=== PATIENT | female | born 1970 | race Caucasian/White ===

== ENCOUNTER → 2021-11-05 | Outpatient (CLI) | payer OTHER ==
--- NOTE | 2021-11-05 16:29 | XR ---
EXAMINATION TYPE: XR chest 2V DATE OF EXAM: 11/05/2021 2:18 PM COMPARISON: None TECHNIQUE: XR chest 2V Frontal and lateral views of the chest. CLINICAL INDICATION:Female, 51 years old with history of PRE SURGICAL; FINDINGS: Lungs/Pleura: There is no evidence of pleural effusion, focal consolidation, or pneumothorax. Pulmonary vascularity: Unremarkable. Heart/mediastinum: Cardiomediastinal silhouette is unremarkable. Musculoskeletal: No acute osseous pathology. IMPRESSION: No acute cardiopulmonary disease/process.
[2021-11-05 17:03] LABS: INR 0.9 (<1.2); Partial Thromboplastin Time 26.3 sec (22.0-30.0); Prothrombin Time 10.2 sec (9.0-12.0)
[2021-11-05 22:21] LABS: HCT 43.1 % (37.2-46.3); HGB 13.3 g/dL (12.0-15.0); MCH 28.5 pg (27.0-32.0); MCHC 30.9 g/dL (32.0-37.0); MCV 92.3 fL (80.0-97.0); Mean Platelet Volume 10.4 fL (9.5-12.2); NRBC Per 100 WBC 0 /100 WBCS (0.0-0.0); Platelet Count 233 X 10*3/uL (140-440); RBC 4.67 X 10*6/uL (4.10-5.20); RDW 13.4 % (11.5-14.5); WBC 5.18 X 10*3/uL (4.50-10.00)
[2021-11-05 23:02] LABS: African American GFR (CKD) 80.2 (60.0-200.0); Anion Gap 9.6 mmol/L (10.00-18.00); BUN/Creat Ratio 15.58 Ratio (12.00-20.00); Calcium 9.4 mg/dL (8.7-10.3); Carbon Dioxide 25.5 mmol/L (20.0-27.5); Non-African American GFR(CKD) 69.2 (60.0-200.0); Potassium 4.1 mmol/L (3.5-5.5)
[2021-11-06 04:06] LABS: Appearance,Urine Clear (Clear); Bilirubin,Urine Negative (Negative); Blood,Urine Negative (Negative); Color,Urine Yellow (Yellow); Ketones,Urine Negative (Negative); Nitrite,Urine Negative (Negative); PH, Urine 5.5 (5.0-8.0); Specific Gravity,Urine 1.008 (1.001-1.030); Urobilinogen,Urine 0.2 (0.2,1.0)
== END | disposition home or self-care (01) ==
LOC: LABPAT 13:52
PROVIDERS: ATTEND Orthopaedic Surgery Orthopaedic Surgery of the Spine
DX: Z01.812 Encounter for preprocedural laboratory examination (principal); Z01.818 Encounter for other preprocedural examination; M47.896 Other spondylosis, lumbar region; M48.061 Spinal stenosis, lumbar region without neurogenic claudication
CPT/HCPCS: 71046; 80048; 81003; 85027; 85610; 85730; 87070; 93005

== ENCOUNTER 2021-11-15 11:08 | Observation (INO) | payer BC, OTHER ==
[~2021-11-15 11:08] MED LIST: DEXAMETHASONE SOD PHOSPHATE 4 MG/ML 1 ML VIAL IV ONE; LIDOCAINE 1% (10MG/ML) FOR IV START INTRADERMA PRN; MIDAZOLAM 2 MG/2 ML VIAL IV PRN; ONDANSETRON 4 MG/2 ML VIAL IVP ONE; ceFAZolin 1,000 MG in SODIUM CHLORIDE 0.9% IRRIGATIO 1,000 ML IRRIGATION PRN
[2021-11-15] MEDS: LACTATED RINGERS 1,000 ML IV SCH (12:12)
[2021-11-15 12:21] LABS: Glucose,Whole Blood 88 mg/dL (70-110)
[2021-11-15] MEDS ORDERED: SCOPOLAMINE 1 MG/72 HR PATCH TRANSDERM ONE (12:22)
[2021-11-15] MEDS ORDERED: PROPOFOL 10 MG/ML 20 ML VIAL IV ONE (13:08)
[2021-11-15] MEDS ORDERED: MIDAZOLAM 2 MG/2 ML VIAL ONE (13:08)
[2021-11-15] MEDS ORDERED: KETAMINE 10 MG/ML 20 ML VIAL ONE (13:08)
[2021-11-15] MEDS ORDERED: fentaNYL (PF) 50 MCG/ML 2 ML AMP ONE (13:08)
[2021-11-15] MEDS ORDERED: SUCCINYLCHOLINE CHLORIDE 200 MG/10 ML VIAL IV ONE (13:08)
[2021-11-15] MEDS ORDERED: LIDOCAINE 2% INJ 20 MG/ML (2 ML VIAL) ONE (13:08)
[2021-11-15] MEDS ORDERED: LIDOCAINE 2%-EPI 1:100,000 20 ML VIAL SQ ONE (13:52)
[2021-11-15] MEDS ORDERED: GELATIN SPONGE,ABSORB (LARGE) 1 EACH SPONGE TOPICAL ONE (13:52)
[2021-11-15] MEDS ORDERED: THROMBIN (BOVINE) 5,000 UNIT VIAL TOPICAL ONE (13:52)
[2021-11-15] MEDS ORDERED: BUPIVACAINE (PF) 0.25% 30 ML VIAL SQ ONE (13:52)
[2021-11-15] MEDS ORDERED: LACTATED RINGERS 1,000 ML IV ONE (15:32)
[2021-11-15] MEDS ORDERED: HYDROmorphone 0.5 MG/0.5 ML SYRINGE IVP PRN (15:51)
[2021-11-15] MEDS ORDERED: BENZOCAINE/MENTHOL LOZENG 1 EACH LOZENGE MUCOUS MEM PRN (15:51)
[2021-11-15] MEDS ORDERED: MAGNESIUM HYDROXIDE 2,400 MG/10 ML CUP PO PRN (15:52)
[2021-11-15] MEDS ORDERED: ONDANSETRON 4 MG/2 ML VIAL IVP PRN (15:52)
[2021-11-15] MEDS ORDERED: HYDROcodone/APAP 7.5-325MG 1 EACH TAB PO PRN (15:55)
[2021-11-15] MEDS ORDERED: CYCLOBENZAPRINE 10 MG TAB PO PRN (15:55)
--- NOTE | 2021-11-15 15:59 | P.OP ---
Date of Procedure: 11/15/21 Preoperative Diagnosis: Dynamic spondylolisthesis L4 5, spinal stenosis L4 5, lower extremity radiculopathy, facet arthrosis, degenerative disc disease Postoperative Diagnosis: Same Anesthesia: GETA Pathology: none sent Condition: stable Disposition: PACU Description of Procedure: DESCRIPTION OF PROCEDURE(S): BRIEF OPERATIVE NOTE Preoperative Diagnosis: Dynamic spondylolisthesis L4 5, spinal stenosis L4 5, lower extremity radiculopathy, facet arthrosis, degenerative disc disease Postoperative Diagnosis: Same Procedure: Laminectomy and decompression L4 [address] navigation aided Minimally invasive Posterior lateral decompression and facet fusion L4 5 Minimally invasive Transforaminal lumbar interbody fusion for a 360 fusion L4 5 Discectomy for decompression L4 5 Placement of interbody graft L4 5 Use of computer navigation for fusion Local autogenous bone grafting Aspiration of bone marrow from the vertebral body pedicle at L4 on the right Use of bone graft extenders Surgeon: Dr. [employer] Consultant: Jean Claude CAMPBELL who is present throughout the entire the case persistence during positioning, dissection, exposure, visualization, and all crucial elements of the case as well as closure. Anesthesia: General anesthesia per Dr. Mendoza Estimated blood loss: Approximately 150 mL Complications: None apparent Components implanted: K2M minimally invasive [place] pedicle screw system withscrews measuring 6.5 mm in diameter to rods one [place] interbody cage with 10 mL of osteo amp bio4 bone graft substitute and 30 mL of the BX bone fibers to supplement the local autogenous bone graft and bone marrow aspirate Disposition: To recovery room in good stable condition. OPERATIVE INDICATIONS The patient has had severe issues at their lower extremity in her lower back over the past several years with significant worsening over the past several months. Over the past few months the patient had pain at their back and their lower extremities. The patient is having severe radicular symptoms at their lower extremity with weakness. The patient is having significant pain in their back. They are unable to obtain any comfort. We did aggressive conservative treatment with medications therapy and interventional pain management however thery were not having any relief. The patient also showed evidence of a listhesis with some dynamic instability at L4 5 which seemed to be the primary source of her symptoms. The patient has been through conservative treatment. We discussed various treatment options including surgery, and the patient wishes to proceed with surgery We discussed the risk, patient's alternatives and benefits of surgery including but not limited to, risk of bleeding risk of infection, risk of need for further surgery, risk of decreased, loss of motion, muscle function, malunion nonunion, hardware failure, nerve damage, paralysis, heart attack, blindness and . They understood issues with the current pandemic and the possibility of exposure. OPERATIVE SUMMARY After discussing all the risks, patient alternatives and benefits at length, the patient elected to proceed with surgical intervention, signed informed consent, and presented for their procedure. The patient was seen and examined in the preoperative holding area and the surgical site was marked. The patient was given antibiotics and brought to the operating room. The patient was sedated and intubated by anesthesia in standard fashion. The patient was positioned on to the operating room table in a prone position on the appropriate frame which was well-padded and well molded. We were careful to pad any bony prominences and pressure points. We were careful to maintain the patient's cervical spine and good neutral alignment and position throughout. The patient was prepped and draped in a normal standard fashion. An appropriate timeout and keystone protocol performed. We were able to proceed with the surgery. The local wound area was infiltrated with local anesthetic. Over the right iliac crest I was able to make small stab incisions and establish a guidepin screw fixation to the iliac crest 2. I was able place the computer referencing device over the guidepins to establish an appropriate reference point for the [employer] CT navigation. We then were able to place patient in an appropriate drape and do a navigation spin for visualization and 3-D reconstruction of the lumbar spine. I was able utilize C-arm guidance and navigation to establish appropriate position over the pedicles bilaterally at the appropriate levels . With the appropriate levels confirmed at L4 5 I was able to make small incisions over the appropriate pedicle sites bilaterally. Utilizing the computer navigation device I was able to establish bony landmarks at the right iliac crest for a bony reference point for the navigation device. I was able to establish a Jamshidi needle over the lateral aspect of the pedicle and advanced the trocar into the pedicle being careful not to breech superiorly inferiorly medially or laterally using computer navigation device. Position was confirmed regularly with AP and lateral images on C-arm and with the computer navigation device at the appropriate levels bilaterally. I was able to establish the trocar into the pedicle appropriately into the posterior aspect of the vertebral body bilaterally at the appropriate levels at L4 and L5. This was done at each of the pedicle positions and each of the vertebrae. At the superior vertebrae I was able to take approximately 25 mL of bone aspiration for use later in the case to supplement the allograft and autograft bone. I was able place the guidewire into the trocar and into the vertebral body appropriately under C-arm guidance. Dissection was taken down over the wire to the appropriate starting position for the screw placed. The appropriate length screw was chosen, threaded over the guidewire and screwed appropriately into the pedicle and vertebral body under C-arm guidance in excellent alignment and position with good bony purchase. This is done at each of the screw sites at the appropriate levels.. With the screws intact I extended the incision to connect the screw hole sites on the most symptomatic side on the right. I dissected down to establish access over the pars and lamina to the base of the spinous process. I was able to expose the facet joint. The capsule the facet was taken down and showed some facet arthrosis at the joint. I was able to use a combination of curettes and [place] rongeurs and a high-speed drill to take down the facet joint and do a facetectomy. I was able get excellent foraminal decompression and central decompression with undermining across midline to perform a laminectomy centrally and contralaterally. I was able get good central decompression. The ligamentum flavum was taken down to further decompress centrally and at bilateral neural foramen. I was able to expose the disc space and visualize the traversing nerve root. Note was made of some disc protrusion and disc herniation that was abutting the traversing nerve root at the level causing further compression of the nerve root. I was able to establish a annulotomy at the appropriate level protecting soft tissue and neural structures. Note was made of some disc desiccation at the disc. I performed a complete discectomy with accommodation of curettes and rasps and scrapers. I was able get good endplate preparation at the disc space. I sized for the appropriate size interbody spacer protecting the soft tissue and neural structures. The wound was copiously irrigated and suctioned dry. There is no evidence of any dural tear or leak. I was able to pack the disc space with local autogenous bone graft as well as a small amount of bone graft which was also placed into the interbody cage itself. Protecting the soft tissue structures and neural structures I was able place the interbody cage in good alignment and good position with good fit and fill at the interbody space. Position was confirmed with C-arm guidance. Good hemostasis maintained. There is no evidence of any dural tear or leak. The wound was irrigated and suctioned dry. With the hardware intact, intraoperative C-arm imaging was again taken which showed good alignment and position of the hardware at the appropriate levels. We were then able to measure, contour and place the rods and appropriate hardware bilaterally. I was able to place capcrews, tighten them down, and torque them with the torque screwdriver appropriately. With this intact I was able to place the local autogenous bone graft with additional bone graft enhancer as necessary into the posterior lateral gutters over the decorticated transverse processes and facet joints on the contralateral side. The remainder of the bone graft was placed over the facet joint on the contralateral side after taking down the facet joint capsule. With the bone graft intact, a stable construct, and good decompression at the appropriate levels, we were able to proceed with closure. Good hemostasis was maintained. There is no evidence of dural tear or leak. The fascia was closed for a watertight closure. he subcuticular tissue was closed with absorbable suture. The wound was cleaned and dried and dressed with the appropriate dressing. The drapes were broken down. The patient was gently rolled back onto their hospital bed being careful to maintain their cervical spine and good neutral alignment and position. They were woken up by anesthesia, extubated, and brought to the recovery room in good stable condition. The patient will be admitted to the hospital for appropriate postoperative care, medical management and monitoring. We will continue to follow them closely about the postoperative course.
[2021-11-15] MEDS: HYDROmorphone 0.5 MG/0.5 ML SYRINGE IVP PRN ×3 (16:12→16:39)
[2021-11-15] MEDS: MEPERIDINE 50 MG/ML SYRINGE IVP ONE ×2 (16:18→16:28)
--- NOTE | 2021-11-15 18:01 | FL ---
Intraoperative/procedural fluoroscopic services were provided. Total fluoroscopy time is 17 seconds w ith a total of 5 submitted images to PACS. Please see the operative/procedural note for further detai ls.
[2021-11-15] MEDS: HYDROmorphone 1 MG/ML 1 ML SYRINGE IVP PRN ×2 (19:21→22:51)
[2021-11-15] MEDS: SODIUM CHLORIDE 0.9% 1,000 ML IV SCH (20:03)
[2021-11-15] MEDS: HYDROcodone/APAP 5-325MG 1 EACH TAB PO PRN (21:52)
[2021-11-15] MEDS: THYROID, PORK 30 MG TAB PO SCH (21:52)
[2021-11-16] MEDS: LACTATED RINGERS 1,000 ML IV SCH (00:23)
[2021-11-16] MEDS: SODIUM CHLORIDE 0.9% 1,000 ML IV SCH ×2 (05:13→21:02)
[2021-11-16] MEDS: SENNOSIDES-DOCUSATE SODIUM 1 EACH TAB PO SCH (08:06)
[2021-11-16] MEDS: CYCLOBENZAPRINE 10 MG TAB PO PRN ×3 (08:07→23:01)
[2021-11-16] MEDS: HYDROmorphone 1 MG/ML 1 ML SYRINGE IVP PRN ×4 (08:08→20:05)
--- NOTE | 2021-11-16 08:52 | P.PN ---
Progress Note - Text Progress Note Date: 11/16/21 Orthopedic Spine History of present illness: Patient is a pleasant 51-year-old female who is seen and examined at the bedside following posterior lateral decompression and fusion performed yesterday. She has been having significant pain in her surgical incision size of the lumbar spine. She is currently resting in bed. She is not currently experiencing any significant pain with her bilateral lower extremities postoperatively. Her [place] catheter remains intact. She has not been able to get out of bed independently. She have some nausea after her pain medication yesterday with vomiting. She denies fever or chills. She does feel she will need a walker to aid in ambulation. She continues to receive IV Dilaudid and oral [place] for pain control. Physical Exam Lumbar Fusion: Status post surgical day number 1 Patient is awake, alert, and oriented 3 Vital signs stable Good chest excursion with deep inspiration and expiration [place] catheter intact Dorsiflexion, plantarflexion, and extensor hallucis longus positive sustained bilaterally No signs or symptoms of DVT; no calf pain; pneumatic cuffs intact bilateral lower extremities Optifoam dressings are clean, dry, and intact over the lumbar spine and right iliac crest; no erythema, purulence, or signs of infection Neurovascularly intact bilaterally lower extremities Assessment: Status post L4-5 minimally invasive posterior lateral decompression and fusion with transforaminal lumbar interbody fusion Low back pain L4-5 dynamic spondylolisthesis L4-5 spinal stenosis Lumbar facet arthrosis Lumbar degenerative disc disease Lower extremity radiculopathy Hypothyroidism Plan: 1. Ambulate as tolerated; work with Physical Therapy to increase mobilization; she may utilize a walker to aid in ambulation as needed. Prescription is written, signed, and provided to case management to obtain a 2 wheeled walker to aid in ambulation which the patient may use an outpatient setting as needed 2. Continue pain control with IV and oral medications including IV Dilaudid, oral [place], and oral cyclobenzaprine 3. Dressings to remain intact with Optifoam; patient may shower with dressings intact 4. Medical management can continue to manage patient for patient's other medical diagnoses including hypothyroidism 5. We will continue to follow the patient closely; depending on the patient's progress, we may plan for discharge home over the next 1-2 days. Currently, she is moving significantly slowly and may require hospitalization for another couple days prior to discharge home. 6. Patient can follow-up with Jean Claude Haq PA-C or Dr. Arsen Gaffney at [facility] in 2-3 weeks following discharge
[2021-11-16] MEDS ORDERED: [UNRECOGNIZED DRUG - OTHER] PO SCH (09:00)
[2021-11-16] MEDS ORDERED: ASCORBIC ACID PO SCH (09:00)
[2021-11-16] MEDS ORDERED: COLLAGEN HYDR PO SCH (09:00)
[2021-11-16] MEDS ORDERED: CAPSU PO SCH (09:00)
[2021-11-16] MEDS ORDERED: NON FORMULARY DRUG (Glucos Sul 2kcl/Msm/Chond/C/Mn [Glucosamine Chondroitin Cap] 1 EACH Ca PO SCH (09:00)
[2021-11-16 10:41] LABS: Basophils # (A) 0.03 X 10*3/uL (0.00-0.10); Basophils % (A) 0.2 %; Eosinophils # (A) 0 X 10*3/uL (0.04-0.35); Eosinophils % (A) 0 %; HCT 37.6 % (37.2-46.3); HGB 12.3 g/dL (12.0-15.0); Immature Grans, Automated 0.5 %; Lymphocytes # (A) 1.18 X 10*3/uL (0.90-5.00); Lymphocytes % (A) 9.7 %; MCH 29.9 pg (27.0-32.0); MCHC 32.7 g/dL (32.0-37.0); MCV 91.3 fL (80.0-97.0); Mean Platelet Volume 10.5 fL (9.5-12.2); Monocytes % (A) 8.2 %; NRBC Per 100 WBC 0 /100 WBCS (0.0-0.0); Neutrophils # (A) 9.89 X 10*3/uL (1.80-7.70); Neutrophils % (A) 81.4 %; Platelet Count 213 X 10*3/uL (140-440); RBC 4.12 X 10*6/uL (4.10-5.20); RDW 13.2 % (11.5-14.5); WBC 12.16 X 10*3/uL (4.50-10.00)
[2021-11-16 11:43] LABS: Anion Gap 10.6 mmol/L (10.00-18.00); BUN/Creat Ratio 11.44 Ratio (12.00-20.00); Blood Urea Nitrogen 10.3 mg/dL (9.0-27.0); Calcium 8.8 mg/dL (8.7-10.3); Carbon Dioxide 23.4 mmol/L (20.0-27.5); Non-African American GFR(CKD) 75.1 (60.0-200.0); Potassium 4.8 mmol/L (3.5-5.5)
--- NOTE | 2021-11-16 12:21 | P.CONS ---
History of Present Illness - Reason for Consult Leukocytosis - History of Present Illness Patient is admitted for the laminectomy and decompression surgery of L4-5. Patient is still having significant pain. Patient does have leukocytosis without any evidence of infection, does have any cough fever, chills, dysuria. Patient didn't pass gas yet. REVIEW OF SYSTEMS: CONSTITUTIONAL: No fever, no malaise, no fatigue. HEENT: No recent visual problems or hearing problems. Denied any sore throat. CARDIOVASCULAR: No chest pain, orthopnea, PND, no palpitations, no syncope. PULMONARY: No shortness of breath, no cough, no hemoptysis. GASTROINTESTINAL: No diarrhea, no nausea, no vomiting, no abdominal pain. NEUROLOGICAL: No headaches, no weakness, no numbness. HEMATOLOGICAL: Denies any bleeding or petechiae. GENITOURINARY: Denies any burning micturition, frequency, or urgency. MUSCULOSKELETAL/RHEUMATOLOGICAL: Severe back pain postoperatively ENDOCRINE: Denies any polyuria or polydipsia. The rest of the 14-point review of systems is negative. PHYSICAL EXAMINATION: GENERAL: The patient is alert and oriented x3, not in any acute distress. Well developed, well nourished. HEENT: Pupils are round and equally reacting to light. EOMI. No scleral icterus. No conjunctival pallor. Normocephalic, atraumatic. No pharyngeal erythema. No thyromegaly. CARDIOVASCULAR: S1 and S2 present. No murmurs, rubs, or gallops. PULMONARY: Chest is clear to auscultation, no wheezing or crackles. ABDOMEN: Soft, nontender, nondistended, normoactive bowel sounds. No palpable organomegaly. MUSCULOSKELETAL: Deferred to orthopedic surgery EXTREMITIES: No cyanosis, clubbing, or pedal edema. NEUROLOGICAL: Gross neurological examination did not reveal any focal deficits. SKIN: No rashes. Assessment and plan -Leukocytosis without any evidence of infection over the depression is necessary at this time we will continue to monitor. -Hypotelorism continue with thyroid hormone supplementation -Chronic back pain, patient is status post lumbar laminectomy DVT prophylaxis: As per primary service Past Medical History Past Medical History: Musculoskeletal Disorder, Thyroid Disorder Additional Past Medical History / Comment(s): chronic constipation, back injury @work while lifting, occasional vertigo History of Any Multi-Drug Resistant Organisms: None Reported Past Surgical History: Cholecystectomy, Tubal Ligation Past Anesthesia/Blood Transfusion Reactions: No Reported Reaction Smoking Status: Former smoker - Past Family History Mother Family Medical History: No Reported History Medications and Allergies Home Medications Medication Instructions Recorded Confirmed Type Ascorbic Acid/Collagen Hydr 1 each PO DAILY 11/08/21 11/15/21 History [Collagen Plus Vit C Capsule] Cyclobenzaprine [Flexeril] 10 mg PO HS PRN 11/08/21 11/15/21 History Glucos Sul 2Kcl/MSM/Chond/C/Mn 1 each PO DAILY 11/08/21 11/15/21 History [Glucosamine Chondroitin Cap] HYDROcodone/APAP 7.5-325MG [[place] 1 tab PO BID PRN 11/08/21 11/15/21 History 7.5-325] Herbal Supplement 1 tab PO DAILY PRN 11/08/21 11/15/21 History Thyroid,Pork [[employer] Thyroid 120] 120 mg PO HS 11/08/21 11/15/21 History Turmeric Root Extract [Turmeric 500 mg PO DAILY 11/08/21 11/15/21 History Curcumin] Allergies Allergy/AdvReac Type Severity Reaction Status Date / Time No Known Allergies Allergy Verified 11/15/21 11:40 Physical Exam Vitals: Vital Signs Temp Pulse Resp BP Pulse Ox 11/16/21 04:09 98.3 F 74 16 126/68 98 11/15/21 21:52 98.3 F 86 16 110/67 96 11/15/21 20:00 97.8 F 99 16 102/69 94 L 11/15/21 19:30 16 11/15/21 18:25 97.9 F 99 16 108/71 97 11/15/21 17:45 83 16 125/72 100 11/15/21 17:31 86 16 115/69 100 11/15/21 17:15 86 16 114/68 100 11/15/21 16:45 84 16 122/69 100 11/15/21 16:30 97 16 137/88 100 11/15/21 16:15 89 16 128/85 100 11/15/21 16:01 96.9 F L 84 16 145/82 100 Intake and Output 11/15/21 11/16/21 11/16/21 22:59 06:59 14:59 Intake Total 580 1360 Output Total 250 900 Balance 330 460 Intake: IV 100 Intake, IV Titration 1000 Amount Sodium Chloride 0.9% 1, 900 000 ml @ 75 mls/hr IV . [id number] [facility] Rx#:[id number] ceFAZolin 2 gm In Sodium 100 Chloride 0.9% 50 ml @ 100 mls/hr IVPB Q8H [facility] Rx#: [id number] Oral 480 360 Output: Urine 100 600 Oral Regurgitation 300 Estimated Blood Loss 150 Other: Voiding Method Indwelling Catheter Indwelling Catheter Results CBC & Chem 7: 11/16/21 07:01 11/16/21 07:01 Labs: Abnormal Lab Results - Last 24 Hours (Table) 11/16/21 11/16/21 Range/Units 07:01 07:01 WBC 12.16 H (4.50-10.00) X 10*3/uL Immature Gran # 0.06 H (0.00-0.04) X 10*3/uL Neutrophils # 9.89 H (1.80-7.70) X 10*3/uL Eosinophils # 0 L (0.04-0.35) X 10*3/uL BUN/Creatinine Ratio 11.44 L (12.00-20.00) Ratio
[2021-11-16] MEDS: HYDROcodone/APAP 5-325MG 1 EACH TAB PO PRN ×3 (14:23→23:00)
[2021-11-16] MEDS: THYROID, PORK 30 MG TAB PO SCH (21:01)
[2021-11-17] MEDS: HYDROcodone/APAP 5-325MG 1 EACH TAB PO PRN ×3 (03:30→12:35)
[2021-11-17] MEDS: LACTATED RINGERS 1,000 ML IV SCH (05:25)
[2021-11-17 06:04] VITALS: RESP 18
[2021-11-17] MEDS: CYCLOBENZAPRINE 10 MG TAB PO PRN (08:16)
[2021-11-17] MEDS: SENNOSIDES-DOCUSATE SODIUM 1 EACH TAB PO SCH (08:17)
[2021-11-17] MEDS: SODIUM CHLORIDE 0.9% 1,000 ML IV SCH (08:17)
--- NOTE | 2021-11-17 09:44 | P.DS ---
Providers Date of admission: 11/16/21 11:17 Expected date of discharge: 11/17/21 Attending physician: Jeferson Gaffney Consults: 11/15/21 15:52 Consult Physician Routine Consulting Provider: Yobani Conway Consult Reason/Comments: Medical management Do you want consulting provider notified?: Yes Primary care physician: Morgan Marcum - Discharge Diagnosis(es) (1) Spondylolisthesis at L4-L5 level Current Visit: Yes Status: Acute (2) Lumbar stenosis Current Visit: Yes Status: Acute (3) Lumbar back pain with radiculopathy affecting lower extremity Current Visit: Yes Status: Acute (4) Lumbar facet arthropathy Current Visit: Yes Status: Acute (5) Status post lumbar spinal fusion Current Visit: Yes Status: Acute (6) Hypothyroidism Current Visit: Yes Status: Acute (7) Obesity (BMI 30-39.9) Current Visit: Yes Status: Acute Hospital Course: This is a pleasant 51 [id number] who presented with L4-5 dynamic spondylolisthesis, spinal stenosis, lumbar facet arthrosis, lumbar degenerative disc disease, and low back pain with lower extremity radiculopathy who failed outpatient conservative therapy. She admitted for an L4-5 minimally invasive posterior lateral decompression and fusion with transforaminal lumbar interbody fusion. She was having some difficulty with pain control the first night postoperatively but has had significant improvement since that time. The patient tolerated the procedure well and did well postoperatively. She has been able to ambulate to the restroom all times independently with the assistance of a walker. She does have some difficulty getting out of bed but she is able to do so. Her IV pain medication has been discontinued. She feels her pain is well-controlled and she is ready for discharge today. Condition on day of discharge stable. Patient will be discharged home. Patient was cleared preoperatively for surgery by Dr. Marcum. Patient currently denies any nausea, vomiting, fever, or chills. Patient is eating and voiding freely without difficulty. Patient may shower Optifoam dressing intact. Patient may remove Optifoam dressing in 3 days and shower without a dressing at that time. Patient should refrain from driving until at least after their first follow-up appointment in the office. Patient should avoid excessive bending, lifting, and twisting; no lifting greater than 10 pounds. MAPS has been reviewed today, 11/17/2021, with an Overall Overdose Risk Score of 300. An "Opiod Start Talking" Form has been signed and placed in the patient's chart. A prescription has been written for hydrocodone 5 mg/325 mg 1 every 4 hours as needed for pain, dispensed #42. She is given prescription for cyclobenzaprine 10 mg 1 tab 3 times a day as needed for muscle spasm. She is also given a prescription for Senokot-S 1 tab twice a day as needed for constipation, dispensed #60. She should avoid anti-inflammatory medications over the next 6 weeks postoperatively. She may utilize a walker to aid in ambulation as needed. Patient's other medical diagnoses include hypothyroidism Physical Exam on day of discharge: Status post surgical day number 2 Patient is awake, alert, and oriented 3 Vital signs stable Good chest excursion with deep inspiration and expiration Abdomen is soft nontender [place] catheter has been discontinued Patient is currently standing at the bedside and is able to ambulate with a walker Dorsiflexion, plantarflexion, and extensor hallucis longus positive sustained bilaterally Good range of motion of the lower extremities Pneumatic cuffs not currently intact bilateral lower extremities Optifoam dressings are clean, dry, and intact over the lumbar spine and right iliac crest; no erythema, purulence, or signs of infection Neurovascularly intact bilaterally lower extremities the patient was seen and examined today at bedside. She is really making good progress and has turned the corner in the past day. Her pain is well-controlled she is tolerating her pain well with some oral medications and her mobilization is improving. She is had limited flatus and I would like to see if she can have some benefit with Dulcolax orally.I think she'll be okay for discharge home today with close follow-up. Procedures: L4-5 minimally invasive posterior lateral decompression and fusion with transforaminal lumbar interbody fusion Patient Condition at Discharge: Good Plan - Discharge Summary Discharge Rx Participant: Yes New Discharge Prescriptions: New Sennosides-Docusate Sodium [Senokot-S] 1 tab PO BID PRN #60 tablet PRN Reason: Constipation Cyclobenzaprine [Flexeril] 10 mg PO TID PRN #60 tab PRN Reason: Muscle Spasm HYDROcodone/APAP 5-325MG [Mills 5] 1 each PO Q4HR PRN #42 tab PRN Reason: Pain No Action HYDROcodone/APAP 7.5-325MG [Mills 7.5-325] 1 tab PO BID PRN PRN Reason: Pain Turmeric Root Extract [Turmeric Curcumin] 500 mg PO DAILY Glucos Sul 2Kcl/MSM/Chond/C/Mn [Glucosamine Chondroitin Cap] 1 each PO DAILY Ascorbic Acid/Collagen Hydr [Collagen Plus Vit C Capsule] 1 each PO DAILY Cyclobenzaprine [Flexeril] 10 mg PO HS PRN PRN Reason: Muscle Spasm Thyroid,Pork [Production Support Developer Thyroid 120] 120 mg PO HS Herbal Supplement 1 tab PO DAILY PRN PRN Reason: Constipation Discharge Medication List Ascorbic Acid/Collagen Hydr [Collagen Plus Vit C Capsule] 1 each PO DAILY 11/08/21 [History] Cyclobenzaprine [Flexeril] 10 mg PO HS PRN 11/08/21 [History] Glucos Sul 2Kcl/MSM/Chond/C/Mn [Glucosamine Chondroitin Cap] 1 each PO DAILY 11/08/21 [History] HYDROcodone/APAP 7.5-325MG [Mills 7.5-325] 1 tab PO BID PRN 11/08/21 [History] Herbal Supplement 1 tab PO DAILY PRN 11/08/21 [History] Thyroid,Pork [Production Support Developer Thyroid 120] 120 mg PO HS 11/08/21 [History] Turmeric Root Extract [Turmeric Curcumin] 500 mg PO DAILY 11/08/21 [History] Cyclobenzaprine [Flexeril] 10 mg PO TID PRN #60 tab 11/17/21 [Rx] HYDROcodone/APAP 5-325MG [Mills 5] 1 each PO Q4HR PRN #42 tab 11/17/21 [Rx] Sennosides-Docusate Sodium [Senokot-S] 1 tab PO BID PRN #60 tablet 11/17/21 [Rx] Follow up Appointment(s)/Referral(s): Jean Claude Haq PAC [PHYSICIAN MATERIALS AND CORROSION ENGINEER] - 12/10/21 1:30 pm (Patient may follow-up with Jean Claude Haq PA-C or Dr. Arsen Gaffney at [facility] in 2-3 weeks following discharge. ) Activity/Diet/Wound Care/Special Instructions: 1. Patient may shower with Optifoam dressing intact. 2. Patient may remove Optifoam dressing in 3 days and shower without a dressing at that time. 3. Patient should refrain from driving until at least after their first follow- up appointment in the office. 4. Patient should avoid excessive bending, twisting, lifting; avoid overhead lifting; no lifting greater than 10 pounds 5. Take medications as prescribed 6. Patient should avoid anti-inflammatory medications over the next 6 weeks postoperatively 7. Do not soak in tub 8. Patient may utilize a walker to aid in ambulation as needed Discharge Disposition: HOME SELF-CARE
[2021-11-17] MEDS ORDERED: bisacodyL 5 MG TABLET.DR PO STA (10:02)
[2021-11-17 11:37] VITALS: BP 117/78; TEMP 99.2
[2021-11-17 11:48] VITALS: PULSE 84
--- NOTE | 2021-11-17 14:20 | P.PN ---
Subjective Progress Note Date: 11/17/21 - Reason for Consult Leukocytosis - History of Present Illness Patient is admitted for the laminectomy and decompression surgery of L4-5. Patient is still having significant pain. Patient does have leukocytosis without any evidence of infection, does have any cough fever, chills, dysuria. Patient didn't pass gas yet. 11/17/2021 Patient is seen and evaluated and follow-up this morning and is status post laminectomy with decompression surgical intervention of the L4-5 and being closely monitored. Patient reports the passing minimal gas and did not have a bowel movement yet. Patient is being given stool softeners and has been evaluated by orthopedics recommending discharge. Patient follows with Shelbi Mirza in the outpatient setting and recommend the patient to follow-up with repeat labs to monitor CBC is WBC was mildly elevated at 12.16 which is most likely reactive. Patient is afebrile denies chest pain or shortness of breath. Patient is tolerating diet and has briefly episodes of nausea and feels is related to the pain pills. Encouraged to increase activity as tolerated with restrictions in mind per orthopedics and patient to follow-up with them in the outpatient setting on discharge. Patient with incentive spirometer at the bedside and encourage the patient to continue using at least 10 times every hour while awake. Review of systems: Constitutional: No reports of fatigue, fever, or chills Cardiovascular: No reports of chest pain or palpitations Respiratory: No reports of shortness of breath or cough GI: reports of occasional nausea last night after pain pills, no reports of vomiting, reports passing minimal gas with no bowel movement as of yet : No reports of dysuria or retention Neurovascular: reports of generalized weakness All medications have been reviewed PHYSICAL EXAMINATION: GENERAL: The patient is alert and oriented x3, not in any acute distress. Well developed, well nourished. HEENT: Pupils are round and equally reacting to light. EOMI. No scleral icterus. No conjunctival pallor. Normocephalic, atraumatic. No pharyngeal erythema. No thyromegaly. CARDIOVASCULAR: S1 and S2 present. No murmurs, rubs, or gallops. PULMONARY: Chest is clear to auscultation, no wheezing or crackles. ABDOMEN: Soft, nontender, nondistended, normoactive bowel sounds. No palpable organomegaly. MUSCULOSKELETAL: Deferred to orthopedic surgery EXTREMITIES: No cyanosis, clubbing, or pedal edema. NEUROLOGICAL: Gross neurological examination did not reveal any focal deficits. SKIN: No rashes. Assessment: -Leukocytosis without any evidence of infection -Hypothyroidism continue with thyroid hormone supplementation -Chronic back pain, patient is status post lumbar laminectomy with decompression of the L4-5 -DVT prophylaxis: As per primary service -Full code Plan: Recommend continue with current medications and management per orthopedic services. WBC mildly elevated yesterday at 12 most likely reactive and provided a prescription for follow-up labs in the outpatient setting. Encourage the patient to follow-up with her primary care provider and she reports she sees Shelbi Mirza outpatient Encouraged increased activity as tolerated Encouraged incentive spirometer at least 10 times every hour while awake Recommend continue current diet and use Zofran as needed for nausea Patient reports she is being discharged today. Encouraged the patient to follow-up with orthopedics as instructed and scheduled. Thank you for this consultation. We will continue to follow during hospitalization. The impression and plan of care has been dictated by Ivonne Ayoub, Nurse Practitioner as directed. Dr. Malissa MD I have performed a history and examination and MDM of this patient, discussed the same with the dictator, and agree with the dictator's assessment and plan as written ,documented as a scribe. Based on total visit time, I have performed more than 50% of the visit. Objective - Vital Signs Vital signs: Vital Signs Temp 98.2 F 11/17/21 05:12 Pulse 84 11/17/21 05:12 Resp 18 11/17/21 05:12 BP 116/73 11/17/21 05:12 Pulse Ox 99 11/17/21 05:12 FiO2 Intake & Output 11/16/21 11/17/21 11/17/21 18:59 06:59 18:59 Intake Total 675 1140 Output Total 1000 850 Balance -325 290 Intake: Intake, IV Titration 675 300 Amount Sodium Chloride 0.9% 1, 675 300 000 ml @ 75 mls/hr IV . [id number] [facility] Rx#:[id number] Oral 840 Output: Urine 1000 850 Uretheral ([place]) 850 Other: Voiding Method Indwelling Catheter Indwelling Catheter # Voids 2 1 - Labs CBC & Chem 7: 11/16/21 07:01 11/16/21 07:01 Labs: Abnormal Lab Results - Last 24 Hours (Table) 11/16/21 11/16/21 Range/Units 07:01 07:01 WBC 12.16 H (4.50-10.00) X 10*3/uL Immature Gran # 0.06 H (0.00-0.04) X 10*3/uL Neutrophils # 9.89 H (1.80-7.70) X 10*3/uL Eosinophils # 0 L (0.04-0.35) X 10*3/uL BUN/Creatinine Ratio 11.44 L (12.00-20.00) Ratio
== END 2021-11-17 13:00 | disposition home or self-care (01) ==
LOC: OR 11:08 → 5NMEDONC 15:43 → OR 11-16 11:17
PROVIDERS: ADMIT Orthopaedic Surgery Orthopaedic Surgery of the Spine; ATTEND Orthopaedic Surgery Orthopaedic Surgery of the Spine
DX: M43.16 Spondylolisthesis, lumbar region (principal); M48.061 Spinal stenosis, lumbar region without neurogenic claudication; M51.16 Intervertebral disc disorders with radiculopathy, lumbar region; M47.26 Other spondylosis with radiculopathy, lumbar region; R11.2 Nausea with vomiting, unspecified; E03.9 Hypothyroidism, unspecified; D72.829 Elevated white blood cell count, unspecified; G89.29 Other chronic pain; K59.09 Other constipation; R42 Dizziness and giddiness; E66.9 Obesity, unspecified; Z68.37 Body mass index [BMI] 37.0-37.9, adult; Z90.49 Acquired absence of other specified parts of digestive tract; Z87.891 Personal history of nicotine dependence; Z79.890 Hormone replacement therapy; Z79.899 Other long term (current) drug therapy
CPT/HCPCS: 22633; 20939; 20930; 20936; 97162; 86900; 86901; 80048; 85025; 86850; 72100; G0378 ×2; C1713 ×2; C1762; J1100; J2175; J0690 ×3; J2405; J1170 ×3